=== PATIENT | female | born 1960 | race African-American/Black ===

== ENCOUNTER 2016-12-18 06:00 | Emergency (ER) | payer OTHER ==
[~2016-12-18] VITALS: Ht 167.6 cm; Wt 103.2 kg
[~2016-12-18 06:00] MED LIST: AMOXICILLIN500 M1 PO
[2016-12-18 11:07] VITALS: BP 105/79
== END 2016-12-18 11:29 | disposition home or self-care (01) ==
LOC: EME → EDBD 06:00 → EME 06:00
DX: J20.9 Acute bronchitis, unspecified (principal); F17.200 Nicotine dependence, unspecified, uncomplicated; Z71.6 Tobacco abuse counseling
CPT/HCPCS: 71020; 99281; 99284

== ENCOUNTER 2017-04-12 11:36 | Emergency (ER) | payer OTHER ==
[~2017-04-12] VITALS: Ht 162.6 cm; Wt 100.3 kg
[2017-04-12 12:57] LABS: EOSINOPHIL (%) 0.1 % (0-5); HEMATOCRIT 42.5 % (36.0-46.0); IMMATURE GRANULOCYTE (%) 0.4 % (0.0-0.7); INSTRUMENT ABS NEUTROPHIL CT 5.4 K/uL; LYMPHOCYTE COUNT 1.1 K/uL (1.0-2.8); MCH 28.7 PG (29.0-34.0); MCHC 32.2 G/DL (30.0-36.0); MCV 88.9 FL (83-99); MEAN PLAT.VOLUME 10.6 uM^3 (9.5-12.4); MONOCYTE (%) 6.3 % (3-12); MONOCYTE COUNT 0.4 K/uL (0-0.8); NEUTROPHIL (%) 77.6 % (45-76); NEUTROPHIL COUNT 5.4 K/uL (1.8-6.4); PLATELET COUNT 181 K/uL (156-360); RBC DIS.WIDTH-CV 14.1 % (11.8-14.6); RBC DIS.WIDTH-SD 46.2 % (39-53); RED BLOOD COUNT 4.78 M/uL (3.80-5.20)
[2017-04-12 13:03] LABS: ADD MIUA? NO; BILIRUBIN NEGATIVE; BLOOD NEGATIVE; COLOR YELLOW ((YELLOW)); GLUCOSE (STRIP) NEGATIVE; KETONES NEGATIVE; LEUKOCYTES NEGATIVE; NITRITE NEGATIVE; PROTEIN (STRIP) NEGATIVE; SPECIFIC GRAVITY 1.018 (1.000-1.030); UCUL ADDED? NO; UROBILINOGEN 0.2 MG/DL (0.2-1.0)
[2017-04-12 13:08] LABS: CHLORIDE 110 mEq/L (99-109); SODIUM 144 mEq/L (136-147)
[2017-04-12 13:10] LABS: GLUCOSE 115 mg/dL (70-99)
[2017-04-12 13:11] LABS: ANION GAP 9 MEQ/L (2-14)
[2017-04-12 13:12] LABS: TOTAL BILIRUBIN 0.3 mg/dL (0.0-1.0)
[2017-04-12 13:13] LABS: ALKALINE PHOSPHATASE 82 IU/L (3-129)
[2017-04-12 13:14] LABS: GFR ESTIMATE (CALCULATED) 43 mL/min/
[2017-04-12 13:15] LABS: UREA NITROGEN (BUN) 15 mg/dL (9-23)
[2017-04-12 13:17] LABS: LIPASE 22 U/L (1.0-51.0)
[2017-04-12] MEDS ORDERED: PERCOCET 5/31 TABLET PO (15:21)
[2017-04-12] MEDS ORDERED: FLOMAX0.4 MG PO (15:21)
[2017-04-12] MEDS ORDERED: ZOFRAN ODT4 MG PO (15:21)
[2017-04-12 15:37] VITALS: BP 197/95
== END 2017-04-12 16:09 | disposition home or self-care (01) ==
LOC: EME 11:36
PROVIDERS: Emergency Medicine
DX: N13.2 Hydronephrosis with renal and ureteral calculous obstruction (principal); R11.2 Nausea with vomiting, unspecified; F17.200 Nicotine dependence, unspecified, uncomplicated
CPT/HCPCS: 74176; 80053; 81003; 83690; 85025; 99281; 99283; J2270; J7030

== ENCOUNTER 2017-05-13 10:17 | Emergency (ER) | payer OTHER ==
[~2017-05-13] VITALS: Ht 160 cm; Wt 97.3 kg
[~2017-05-13 10:17] MED LIST changes: +FLOMAX0.4 MG PO; +PERCOCET 5/31 TABLET PO; +ZOFRAN ODT4 MG PO
[2017-05-13 11:12] LABS: HEMATOCRIT 40.9 % (36.0-46.0); MCH 29.1 PG (29.0-34.0); MCHC 33.5 G/DL (30.0-36.0); MEAN PLAT.VOLUME 11.4 uM^3 (9.5-12.4); PLATELET COUNT 178 K/uL (156-360); RBC DIS.WIDTH-CV 13.7 % (11.8-14.6); RBC DIS.WIDTH-SD 43.7 % (39-53); WHITE BLOOD COUNT 4.9 K/uL (4.1-10.2)
[2017-05-13 11:27] LABS: CHLORIDE 110 mEq/L (99-109); POTASSIUM 4.1 mEq/L (3.7-5.4); SODIUM 141 mEq/L (136-147)
[2017-05-13 11:29] LABS: GLUCOSE 95 mg/dL (70-99)
[2017-05-13 11:30] LABS: ANION GAP 7 MEQ/L (2-14)
[2017-05-13 11:31] LABS: TOTAL BILIRUBIN 0.3 mg/dL (0.0-1.0)
[2017-05-13 11:32] LABS: ALKALINE PHOSPHATASE 82 IU/L (3-129)
[2017-05-13 11:33] LABS: GFR ESTIMATE (CALCULATED) > 59 mL/min/
[2017-05-13 11:34] LABS: UREA NITROGEN (BUN) 14 mg/dL (9-23)
[2017-05-13 12:07] LABS: TROP-I INTERPRETATION NEGATIVE; TROPONIN-I < 0.01 ng/mL (0.0-0.30)
[2017-05-13 12:17] LABS: ADD MIUA? NO; BILIRUBIN NEGATIVE; BLOOD NEGATIVE; COLOR YELLOW ((YELLOW)); GLUCOSE (STRIP) NEGATIVE; KETONES NEGATIVE; LEUKOCYTES NEGATIVE; NITRITE NEGATIVE; PROTEIN (STRIP) NEGATIVE; SPECIFIC GRAVITY 1.014 (1.000-1.030); UCUL ADDED? NO; UROBILINOGEN 0.2 MG/DL (0.2-1.0)
[2017-05-13] MEDS ORDERED: MOTRIN600 MG PO (12:46)
[2017-05-13 13:20] VITALS: BP 161/93
[2017-05-13] MEDS ORDERED: LORTAB 5-325 M1 EACH PO (13:24)
== END 2017-05-13 13:20 | disposition home or self-care (01) ==
LOC: EME 10:17
PROVIDERS: Emergency Medicine
DX: R10.31 Right lower quadrant pain (principal); Z87.442 Personal history of urinary calculi; I10 Essential (primary) hypertension; F17.200 Nicotine dependence, unspecified, uncomplicated
CPT/HCPCS: 71020; 74176; 80053; 81003; 84484; 85027; 99281; 99285; J1885; J2270; J2405; J7030